=== PATIENT | female | born 1995 | race Asian ===

== ENCOUNTER 2019-04-20 12:19 | Day surgery (SDC) | payer OTHER ==
[2019-04-19 12:16] VITALS: BMI 21.4
--- NOTE | 2019-04-20 13:10 | HP ---
History & Physical Update - History History: No Change - Physical Physical: No Change - Assessment Assessment: No Change - Plan Plan: No Change
[2019-04-20] MEDS ORDERED: ACETAMINOPHEN 1000 MG/100 ML VIAL (NON FORMULARY) IVPB ONE (13:17)
[2019-04-20] MEDS ORDERED: MIDAZOLAM HCL 2 MG/2 ML SINGLE DOSE VIAL ONE (13:19)
[2019-04-20] MEDS ORDERED: PROPOFOL 20 ML ONE ×2 (13:19→13:37)
[2019-04-20] MEDS ORDERED: SUCCINYLCHOLINE CHLORIDE 200 MG/10 ML SYRINGE ONE (13:19)
[2019-04-20] MEDS ORDERED: IBUPROFEN 800 MG/8 ML IJ IVPB SCH (13:30)
[2019-04-20] MEDS ORDERED: ceFAZolin SODIUM 1 GM VIAL IVPB ONE (13:30)
[2019-04-20] MEDS ORDERED: DEXTROSE 5%-0.45% SALINE 1,000 ML IV SCH (13:30)
[2019-04-20] MEDS ORDERED: oxyCODONE HCL 5 MG TABLET PO PRN (14:18)
[2019-04-20] MEDS ORDERED: ONDANSETRON 4 MG/2 ML VIAL IVPUSH PRN (14:18)
[2019-04-20] MEDS ORDERED: PROMETHAZINE HCL 25 MG/1 ML VIAL IVPUSH PRN (14:18)
[2019-04-20] MEDS ORDERED: ACETAMINOPHEN INJECTION 100 ML IVPB ONE (14:19)
[2019-04-20] MEDS ORDERED: IBUPROFEN 800 MG/8 ML IJ IVPB ONE (14:26)
[2019-04-20] MEDS ORDERED: LACTATED RINGERS SOLUTION 1,000 ML IV SCH (14:30)
[2019-04-20 17:40] VITALS: BP 99/61; PULSE 70
[2019-04-20 17:44] VITALS: TEMP 98
--- NOTE | 2019-04-26 18:11 | PATH ---
Surgical Pathology Report Patient Name: PHI SINHA Med. Rec. #: [id number] /Age/Gender: 1995 (Age: 23) / F Account: [id number] Location: [facility] Taken: 04/20/2019 Received: 04/21/2019 Reported: 04/26/2019 Physicians: Delfino Lagunas M.D. Specimen(s) Received OLD STENT Clinical History Right ureteral stone Final Diagnosis STENT, REMOVAL: STENT, DESCRIBED (GROSS EXAMINATION ONLY). Electronically Signed Thelma Mckay M.D. Gross Description Received fresh labeled "old stent" is a 35 cm in length blue-white coiled portion of tubing consistent with a ureteral stent. No soft tissue is present. No sections are submitted, gross only. [email or web address]/04/22/2019 philip/04/22/2019
--- NOTE | 2019-04-26 20:29 | OP ---
DATE OF OPERATION: 04/20/2019 PREOPERATIVE DIAGNOSIS: Right ureteral calculus. POSTOPERATIVE DIAGNOSIS: Right ureteral calculus. PROCEDURE: Cystoscopy right ureteroscopic laser lithotripsy and stent removal. ANESTHESIA: General. SURGEON: Delfino Lagunas M.D. [employer] CHIEF: None. DRAINS: None. FINDINGS: A stone in mid right ureter. SPECIMENS: Stent. PREOPERATIVE INDICATION: The patient is a 23-year-old female who about a month ago was on vacation in [place] where she developed urosepsis from an obstructing stone. She had emergency stent placement on the right side. She comes back now for stent removal and stone treatment. DESCRIPTION OF PROCEDURE: The patient was brought to the OR, placed on the table in the supine position. Given general anesthesia and IV antibiotics and placed in the modified lithotomy position. The groin was prepped and draped sterilely. Timeout was performed. Cystoscopy was performed. The urethra was normal. The bladder itself was normal. The stent was seen emerging from the right ureteral orifice. This was removed with grasping forceps, and the line was passed up into the right kidney under fluoroscopic guidance. Alongside the ureter, a ureteroscope was passed, and the stone that was seen previously on the CAT scan was visualized in the upper to mid ureter. Using holmium laser fiber, stone was broken up into small pieces and irrigated out. No other stones were seen. Along the course of the ureter and using a flexible scope, there were no stones seen in the kidney. Scope was removed along with the wire. The bladder was emptied. The patient was woken up. DELFINO LAGUNAS M.D. [id number]
== END 2019-04-20 17:20 | disposition home or self-care (01) ==
LOC: JASU-SURG 12:19
PROVIDERS: ATTEND Urology
PROC: 0TC68ZZ Extirpation of Matter from Right Ureter, Via Natural or Artificial Opening Endoscopic (ICD-10-PCS; principal; 2019-04-20 13:30)
PROC: 0TP98DZ Removal of Intraluminal Device from Ureter, Via Natural or Artificial Opening Endoscopic (ICD-10-PCS; 2019-04-20 13:30)
DX: N20.1 Calculus of ureter (principal)
CPT/HCPCS: 76000-TC-FY; 84703; 88300-TC; 94760; J0131